=== PATIENT | female | born 1995 | race African-American/Black ===

== ENCOUNTER 2017-04-29 20:00 | Emergency (ER) | payer BC ==
[~2017-04-29] VITALS: Ht 172.7 cm; Wt 58.7 kg
[~2017-04-29 20:00] MED LIST: NOHOMEMEDS; Vicodin,Norco 5/325 PO
[2017-04-29 20:40] LABS: HEMATOCRIT 42.3 % (36.0-46.0); MCH 29.3 PG (29.0-34.0); MCHC 33.3 G/DL (30.0-36.0); MCV 87.9 FL (83-99); MEAN PLAT.VOLUME 11.2 uM^3 (9.5-12.4); PLATELET COUNT 231 K/uL (156-360); RBC DIS.WIDTH-CV 12.4 % (11.8-14.6); RBC DIS.WIDTH-SD 39.9 % (39-53); RED BLOOD COUNT 4.81 M/uL (3.80-5.20); WHITE BLOOD COUNT 5.1 K/uL (4.1-10.2)
[2017-04-29 20:43] LABS: ADD MIUA? NO; BILIRUBIN NEGATIVE; BLOOD NEGATIVE; COLOR YELLOW ((YELLOW)); GLUCOSE (STRIP) NEGATIVE; KETONES 5; LEUKOCYTES NEGATIVE; NITRITE NEGATIVE; PROTEIN (STRIP) NEGATIVE; SPECIFIC GRAVITY 1.015 (1.000-1.030); UCUL ADDED? NO; UROBILINOGEN 0.2 MG/DL (0.2-1.0)
[2017-04-29 21:04] LABS: CHLORIDE 108 mEq/L (99-109); POTASSIUM 3.9 mEq/L (3.7-5.4); SODIUM 138 mEq/L (136-147)
[2017-04-29 21:07] LABS: GLUCOSE 88 mg/dL (70-99)
[2017-04-29 21:08] LABS: ANION GAP 9 MEQ/L (2-14)
[2017-04-29 21:09] LABS: TOTAL BILIRUBIN 0.5 mg/dL (0.0-1.0)
[2017-04-29 21:10] LABS: ALKALINE PHOSPHATASE 76 IU/L (3-129); GFR ESTIMATE (CALCULATED) > 59 mL/min/
[2017-04-29 21:11] LABS: UREA NITROGEN (BUN) 9 mg/dL (9-23)
[2017-04-29 21:12] LABS: QUANTITATIVE HCG < 4.0 MIU/ML
[2017-04-29 21:14] LABS: LIPASE 23 U/L (1.0-51.0)
[2017-04-30] MEDS ORDERED: BENTYL20 MG PO (00:16)
[2017-04-30 01:18] VITALS: BP 121/77
== END 2017-04-30 00:33 | disposition home or self-care (01) ==
LOC: EME 20:00
DX: R10.84 Generalized abdominal pain (principal); F41.9 Anxiety disorder, unspecified
CPT/HCPCS: 74022; 80053; 81003; 83690; 84702; 85027; 99281; 99283

== ENCOUNTER 2017-05-04 23:25 | Emergency (ER) | payer BC ==
[~2017-05-04] VITALS: Ht 172.7 cm; Wt 55.8 kg
[~2017-05-04 23:25] MED LIST changes: +BENTYL20 MG PO
[2017-05-05 00:13] LABS: ADD MIUA? YES; BILIRUBIN NEGATIVE; BLOOD NEGATIVE; COLOR AMBER ((YELLOW)); GLUCOSE (STRIP) NEGATIVE; KETONES 80; LEUKOCYTES NEGATIVE; NITRITE NEGATIVE; PROTEIN (STRIP) 100; SPECIFIC GRAVITY 1.031 (1.000-1.030)
[2017-05-05 00:18] LABS: BACTERIA NONE SEEN /HPF; EPITHELIAL CELLS RARE /HPF; MUCUS 4+ /LPF; RED BLOOD CELLS 0-5 /HPF (0-5); UCUL ADDED? YES
[2017-05-05 00:24] LABS: HEMATOCRIT 37.6 % (36.0-46.0); MCH 29.5 PG (29.0-34.0); MCHC 34.3 G/DL (30.0-36.0); MEAN PLAT.VOLUME 11.5 uM^3 (9.5-12.4); PLATELET COUNT 184 K/uL (156-360); RBC DIS.WIDTH-CV 11.7 % (11.8-14.6); RBC DIS.WIDTH-SD 36.9 % (39-53); RED BLOOD COUNT 4.37 M/uL (3.80-5.20); WHITE BLOOD COUNT 4.4 K/uL (4.1-10.2)
[2017-05-05 00:25] LABS: CHLORIDE 103 mEq/L (99-109); POTASSIUM 3.5 mEq/L (3.7-5.4); SODIUM 137 mEq/L (136-147)
[2017-05-05 00:27] LABS: GLUCOSE 89 mg/dL (70-99)
[2017-05-05 00:28] LABS: ANION GAP 13 MEQ/L (2-14)
[2017-05-05 00:29] LABS: TOTAL BILIRUBIN 0.5 mg/dL (0.0-1.0)
[2017-05-05 00:31] LABS: ALKALINE PHOSPHATASE 63 IU/L (3-129); GFR ESTIMATE (CALCULATED) > 59 mL/min/
[2017-05-05 00:32] LABS: UREA NITROGEN (BUN) 13 mg/dL (9-23)
[2017-05-05 00:34] LABS: LIPASE 15 U/L (1.0-51.0)
[2017-05-05 00:36] LABS: QUANTITATIVE HCG < 4.0 MIU/ML
[2017-05-05] MEDS ORDERED: ZOFRAN ODT4 MG PO (01:54)
[2017-05-05] MEDS ORDERED: NAPROXEN500 MG PO (01:56)
[2017-05-05 02:07] VITALS: BP 139/97
== END 2017-05-05 02:07 | disposition home or self-care (01) ==
LOC: EME 23:25
PROVIDERS: Physician Assistant Medical
DX: R10.9 Unspecified abdominal pain (principal); K59.00 Constipation, unspecified; R11.2 Nausea with vomiting, unspecified; F41.9 Anxiety disorder, unspecified
CPT/HCPCS: 74177; 80053; 81003; 83690; 84702; 85027; 87086; 99281; 99284; J1885; J2405; J7030

== ENCOUNTER → 2017-06-06 | Outpatient (CLI) | payer BC ==
[~2017-06-06] VITALS: Ht 172.7 cm; Wt 59.0 kg
[~2017-06-06] MED LIST changes: +ALEVE220 MG PO; +BENTYL10 MG PO; +NAPROXEN500 MG PO; +ZOFRAN ODT4 MG PO
== END | disposition home or self-care (01) ==
LOC: AMB 10:26
DX: D13.2 Benign neoplasm of duodenum (principal); R11.2 Nausea with vomiting, unspecified; R10.13 Epigastric pain
CPT/HCPCS: 88305; J2250

== ENCOUNTER → 2017-06-16 | Outpatient (CLI) | payer BC | END | disposition home or self-care (01) | LOC: NUC 07:00 | DX: R10.13 Epigastric pain (principal) | CPT/HCPCS: 78264; A9541 ==